=== PATIENT | female | born 1995 | race Caucasian/White ===

== ENCOUNTER 2021-11-13 07:32 | Emergency (ER) | payer SELFPAY ==
[~2021-11-13] VITALS: Ht 165.1 cm; Wt 78.0 kg
[2021-11-13] MEDS ORDERED: OLANZAPINE 10 MG/VIAL IM ONE (09:00)
[2021-11-13] MEDS ORDERED: MIDAZOLAM HCL 2 MG/2 ML VIAL IM ONE (09:00)
[2021-11-13 09:38] LABS: BASOPHILS % 0.7 % (0.0-2.0); EOSINOPHILS % 2.4 % (0.0-5.0); HEMATOCRIT. 39.7 % (36.0-48.0); HEMOGLOBIN. 13.1 g/dL (12.0-16.0); LYMPHOCYTES % 16.8 % (20.0-50.0); MEAN CORPUSCULAR HEMOGLOBIN 25.1 pg (28.0-32.0); MEAN CORPUSCULAR VOLUME 76.2 fL (81.0-99.0); MEAN PLATELET VOLUME 8.2 fl (7.4-10.4); MONOCYTES % 8.1 % (2.0-8.0); PLATELET 305 x1000/uL (130-400); RED CELL DISTRIBUTION WIDTH 14.7 % (11.6-14.6)
[2021-11-13 09:46] LABS: CHLORIDE 106 mEq/L (98-107)
[2021-11-13 09:52] LABS: HCG SCREEN NEGATIVE
[2021-11-13 09:55] LABS: ETHANOL BLOOD < 10 mg/dL
[2021-11-13] MEDS: OLANZAPINE 5MG TABLET ODT PO SCH ×2 (10:30→17:00)
[2021-11-13] MEDS: DIVALPROEX SODIUM 500MG ER TABLET PO SCH (10:30)
[2021-11-13 15:06] LABS: CLARITY URINE CLEAR (CLEAR); COLOR URINE YELLOW (YELLOW); KETONES URINE 1+ (NEGATIVE); LEUKOCYTE ESTERASE URINE 2+ (NEGATIVE); NITRITE URINE NEGATIVE (NEGATIVE); OCCULT BLOOD URINE NEGATIVE (NEGATIVE); PROTEIN URINE NEGATIVE (NEGATIVE); SPECIFIC GRAVITY URINE 1.008 (1.005-1.030); UROBILINOGEN URINE 0.2 E.U./dL (0.2-1.0)
[2021-11-13 15:37] LABS: *BARBITURATES SCREEN URINE NEGATIVE (NEGATIVE); *COCAINE SCREEN URINE NEGATIVE (NEGATIVE); METHADONE URINE SCREEN NEGATIVE (NEGATIVE); OPIATES URINE SCREEN NEGATIVE (NEGATIVE); PHENCYCLIDINE URINE SCREEN NEGATIVE (NEGATIVE)
[2021-11-13 15:51] LABS: *AMPHETAMINES SCREEN URINE PRESUMTIVE POSITIVE (NEGATIVE); *BENZODIAZEPINES SCREEN URINE PRESUMTIVE POSITIVE (NEGATIVE); CANNABINOID URINE SCREEN PRESUMTIVE POSITIVE (NEGATIVE)
[2021-11-14] MEDS: OLANZAPINE 5MG TABLET ODT PO SCH ×2 (09:05→18:56)
[2021-11-14] MEDS: DIVALPROEX SODIUM 500MG ER TABLET PO SCH (09:05)
[2021-11-14] MEDS ORDERED: OLANZAPINE 10 MG/VIAL IM ONE (10:15)
[2021-11-14] MEDS ORDERED: DIPHENHYDRAMINE 50MG/ML VIAL IM STA (10:42)
[2021-11-14] MEDS ORDERED: HALOPERIDOL LACTATE 5MG/ML VIAL IM STA (10:42)
[2021-11-14] MEDS ORDERED: MIDAZOLAM HCL 2 MG/2 ML VIAL IM ONE (10:45)
[2021-11-14] MEDS ORDERED: POTASSIUM CHLORIDE 20MEQ TABLET SR PO ONE (15:00)
[2021-11-14] MEDS ORDERED: ZIPRASIDONE MESYLATE 20MG/VIAL IM ONE (15:00)
[2021-11-15] MEDS: OLANZAPINE 5MG TABLET ODT PO SCH ×2 (09:30→18:30)
[2021-11-15] MEDS: DIVALPROEX SODIUM 500MG ER TABLET PO SCH (09:30)
[2021-11-15] MEDS ORDERED: OLANZAPINE 10 MG/VIAL IM ONE (18:15)
[2021-11-16] MEDS ORDERED: OLANZAPINE 10 MG/VIAL IM ONE (02:15)
[2021-11-16] MEDS ORDERED: OLANZAPINE 10 MG/VIAL IM NR (02:15)
[2021-11-16] MEDS ORDERED: LORAZEPAM 1MG TABLET PO ONE (02:15)
[2021-11-16] MEDS ORDERED: LORAZEPAM 1MG TABLET PO NR (03:45)
[2021-11-16] MEDS: OLANZAPINE 5MG TABLET ODT PO SCH (09:00)
[2021-11-16] MEDS: DIVALPROEX SODIUM 500MG ER TABLET PO SCH (09:00)
[2021-11-16 10:00] VITALS: BP 132/78
== END 2021-11-16 12:59 | disposition home or self-care (01) ==
LOC: ER 07:32
DX: F15.129 Other stimulant abuse with intoxication, unspecified (principal); F23 Brief psychotic disorder; R45.851 Suicidal ideations; Z20.822 Contact with and (suspected) exposure to COVID-19
CPT/HCPCS: 36415; 80053; 80305; 80320; 81003; 84703; 85025; 96372; 99291; C9803; J2250; J3490; U0003; U0005; G0480